=== PATIENT | female | born 1995 | race African-American/Black ===

== ENCOUNTER → 2017-09-21 | Outpatient (CLI) | payer OTHER | END | disposition home or self-care (01) | LOC: KCIC US 07:43 | DX: M79.89 Other specified soft tissue disorders (principal) | CPT/HCPCS: 76882 ==

== ENCOUNTER → 2018-10-21 | Outpatient (CLI) | payer OTHER ==
[2015-07-24 20:34] VITALS: BP 123/81
[~2018-10-21] MED LIST: PROM25TA10 PO
--- NOTE | 2018-10-21 15:36 | KCIC ---
Left Axillary sonography Clinical indications: Left axillary swelling. FINDINGS: High-resolution sonography of the left axillary region in the area of swelling as indicated by the patient was performed. No focal sonographic abnormality such as a solid mass or cyst or abscess or enlarged axillary lymph node is seen. IMPRESSION: No focal sonographic abnormality is evident. Therefore, follow-up should be clinical. Electronically signed by: Aubrey Mckeon MD (10/21/2018 3:33 PM) [id number]
== END | disposition home or self-care (01) ==
LOC: KCIC US 09:28
PROVIDERS: ATTEND Nurse Practitioner Family
DX: R59.0 Localized enlarged lymph nodes (principal)
CPT/HCPCS: 76881